=== PATIENT | female | born 1955 | race Caucasian/White ===

== ENCOUNTER 2020-09-24 14:22 | Emergency (ER) | payer OTHER ==
[2020-09-24 16:58] LABS: HEMOGLOBIN 14.8 gm/dl (12.3-15.3); RED BLOOD COUNT 5.31 M/UL (4.00-5.10); WHITE BLOOD COUNT 7.7 K/UL (4.5-11.0)
[2020-09-24 17:23] LABS: BUN/CREATININE RATIO 35 (0-10)
== END 2020-09-24 19:22 | disposition home or self-care (01) ==
LOC: ER1 14:22
PROVIDERS: Family Medicine
DX: R19.7 Diarrhea, unspecified (principal); E86.0 Dehydration; F41.9 Anxiety disorder, unspecified; I10 Essential (primary) hypertension; R21 Rash and other nonspecific skin eruption; Z20.822 Contact with and (suspected) exposure to COVID-19
CPT/HCPCS: 71045; 80053; 81001; 82550; 82553; 83605; 83735; 83874; 84484; 85025; 93005; 96374; 96375; 99284; J1885; J7030; U0002

== ENCOUNTER → 2021-09-25 | Outpatient (CLI) | payer OTHER | LOC: EMI 09-20 13:45 → KOH-I 09-20 14:30 | DX: M54.50 Low back pain, unspecified (principal); M47.816 Spondylosis without myelopathy or radiculopathy, lumbar region; M48.061 Spinal stenosis, lumbar region without neurogenic claudication | CPT/HCPCS: 72148 ==